=== PATIENT | male | born 1960 | race Caucasian/White ===

== ENCOUNTER 2016-12-07 04:01 | Inpatient (IN) ==
[2016-12-02 15:59] LABS: HEMATOCRIT 39.6 % (42.0-52.0); HEMOGLOBIN 13.4 g/dL (14.0-18.0); MCH 31.6 PG (27-31); MCHC 33.8 g/dL (33-37); MCV 93.4 FL (81-99); MPV 9.6 FL (7.4-10.4); RBC 4.24 XMIL (4.7-6.1)
[2016-12-02 16:10] LABS: AGAP 12; BUN 14 mg/dL (8-22); CALCIUM 9.6 mg/dL (8.8-10.2); CHLORIDE 98 mmol/L (98-107); COSMO 277; POTASSIUM 4.2 mmol/L (3.5-5.1); SODIUM 138 mmol/L (136-145); TCO2 28 mmol/L (25-35)
[2016-12-07] MEDS ORDERED: KEFZOL 1 GM/D5W 1 GM/50 ML IVPB ONE (07:00)
[2016-12-07] MEDS ORDERED: LR 1,000 ML ONE (07:00)
[2016-12-07] MEDS ORDERED: DIPRIVAN 1% ONE (08:53)
[2016-12-07] MEDS ORDERED: XYLOCAINE-MPF 2% ONE (08:54)
[2016-12-07] MEDS ORDERED: SODIUM CHLORIDE 0.9% 10 ML ONE (08:56)
[2016-12-07] MEDS ORDERED: NORCURON ONE (08:56)
[2016-12-07] MEDS ORDERED: ROBINUL ONE (08:59)
[2016-12-07] MEDS ORDERED: NEOSTIGMINE ONE (09:00)
[2016-12-07] MEDS ORDERED: HEPARIN ONE ×2 (09:06)
[2016-12-07] MEDS ORDERED: NS 2,000 ML ONE (09:06)
[2016-12-07] MEDS ORDERED: SENSORCAINE 0.5%-EPI 1:200,000 ONE (09:27)
[2016-12-07] MEDS ORDERED: NEO-SYNEPHRINE ONE (09:36)
[2016-12-07] MEDS ORDERED: KEFZOL ONE (10:06)
[2016-12-07 10:27] LABS: URINE MICRO REVIEW NEEDED? NO; URINE SOURCE CATH
[2016-12-07 10:34] LABS: BILIRUBIN URINE NEGATIVE (NEGATIVE); BLOOD URINE NEGATIVE (NEGATIVE); COLOR YELLOW; GLUCOSE URINE NEGATIVE (NEGATIVE); LEUKOCYTES URINE NEGATIVE (NEGATIVE); NITRITE URINE NEGATIVE (NEGATIVE); PH URINE 5.5; PROTEIN URINE NEGATIVE (NEGATIVE); SP GRAVITY URINE 1.017; TURBIDITY URINE CLEAR (CLEAR); UROBILINOGEN URINE NORMAL (NORMAL)
[2016-12-07 10:36] LABS: UR EPITHELIAL CELLS <10 /HPF (<10); URINE BACTERIA NEGATIVE /HPF; URINE RBC <10 /HPF (<10); URINE WBC <10 /HPF (<10)
[2016-12-07] MEDS ORDERED: NS 1,000 ML ONE (12:16)
[2016-12-07] MEDS ORDERED: DILAUDID IV PRN (13:12)
[2016-12-07] MEDS ORDERED: ZOFRAN IV PRN (13:12)
[2016-12-07] MEDS ORDERED: DESYREL PO PRN (13:12)
[2016-12-07] MEDS ORDERED: FLEXERIL PO PRN (13:12)
[2016-12-07] MEDS: ATIVAN PO SCH ×2 (14:25→21:10)
[2016-12-07] MEDS: KEFZOL 1 GM in NS 50 ML IV SCH ×2 (14:26→21:09)
[2016-12-07] MEDS: NS 1,000 ML IV SCH ×3 (14:26→21:09)
[2016-12-07] MEDS: XOPENEX HFA INH SCH ×2 (15:45→19:30)
[2016-12-07] MEDS: NORCO-10 PO PRN ×2 (16:13→21:18)
[2016-12-07] MEDS: SYMBICORT 160/4.5 MICROGM INHALER INH SCH (19:30)
[2016-12-07] MEDS: PERIDEX MT SCH (21:09)
[2016-12-08] MEDS: XOPENEX HFA INH SCH ×4 (03:40→20:30)
[2016-12-08] MEDS: NORCO-10 PO PRN ×3 (05:14→21:18)
[2016-12-08] MEDS: NS 1,000 ML IV SCH ×2 (05:14→13:50)
[2016-12-08] MEDS: KEFZOL 1 GM in NS 50 ML IV SCH ×2 (05:14→13:31)
[2016-12-08 05:57] LABS: MANUAL DIFF NEEDED? NO
[2016-12-08 06:07] LABS: BASO% 0.2 % (0.0-0.8); EOS# 0.37 X1000 (0.0-0.7); EOS% 3.8 % (0.0-10.0); HEMATOCRIT 37.3 % (42.0-52.0); HEMOGLOBIN 12.4 g/dL (14.0-18.0); IMM GRAN# 0.03 X1000 (0.0-0.04); IMM GRAN% 0.3 % (0.0-0.5); LYMPH# 2.21 X1000 (1.2-3.4); LYMPH% 22.9 % (20.5-51.1); MCH 31.6 PG (27-31); MCHC 33.2 g/dL (33-37); MCV 94.9 FL (81-99); MONO# 0.84 X1000 (0.11-0.59); MONO% 8.7 % (1.7-9.3); MPV 9.7 FL (7.4-10.4); NEUT% 64.1 % (42.2-75.2); PLT 143 X1000 (130-400); RBC 3.93 XMIL (4.7-6.1)
[2016-12-08 06:27] LABS: AGAP 9; BUN 10 mg/dL (8-22); CHLORIDE 103 mmol/L (98-107); COSMO 281; POTASSIUM 4.5 mmol/L (3.5-5.1); SODIUM 141 mmol/L (136-145); TCO2 29 mmol/L (25-35)
[2016-12-08] MEDS: SYMBICORT 160/4.5 MICROGM INHALER INH SCH ×2 (07:57→19:40)
[2016-12-08] MEDS: LIPITOR PO SCH (09:34)
[2016-12-08] MEDS: EFFEXOR XR PO SCH (09:34)
[2016-12-08] MEDS: PRINIVIL PO SCH (09:34)
[2016-12-08] MEDS: PERIDEX MT SCH ×2 (09:34→21:19)
[2016-12-08] MEDS: FLOMAX PO SCH (09:34)
[2016-12-08] MEDS: ATIVAN PO SCH ×3 (09:40→17:43)
[2016-12-08] MEDS ORDERED: NS 1,000 ML IV SCH (15:42)
[2016-12-09] MEDS: XOPENEX HFA INH SCH ×2 (03:00→08:10)
[2016-12-09] MEDS: NORCO-10 PO PRN ×2 (05:18→11:20)
[2016-12-09 07:19] VITALS: BP 129/77
[2016-12-09] MEDS: SYMBICORT 160/4.5 MICROGM INHALER INH SCH (08:10)
[2016-12-09] MEDS: FLOMAX PO SCH (08:28)
[2016-12-09] MEDS: PRINIVIL PO SCH (08:28)
[2016-12-09] MEDS: ATIVAN PO SCH (08:28)
[2016-12-09] MEDS: LIPITOR PO SCH (08:28)
[2016-12-09] MEDS: PERIDEX MT SCH ×2 (08:28→08:29)
[2016-12-09] MEDS: EFFEXOR XR PO SCH (08:28)
[2016-12-09] MEDS ORDERED: PNEUMOVAX 23 IM ONE (10:45)
== END 2016-12-09 11:28 | disposition home or self-care (01) ==
LOC: SURHOLD 04:01 → 4N 10:32
PROVIDERS: ADMIT Surgery; ATTEND Surgery